=== PATIENT | female | born 1985 | race Caucasian/White ===

== ENCOUNTER → 2019-02-18 | Outpatient (REF) | payer BC ==
[2019-02-25 16:11] LABS: HPV HYBRID CAPTURE II Negative (Negative)
== END ==
LOC: M LAB LCGH 11:15
PROVIDERS: ATTEND Family Medicine
DX: Z12.4 Encounter for screening for malignant neoplasm of cervix (principal); R87.615 Unsatisfactory cytologic smear of cervix
CPT/HCPCS: 87624; G0123